=== PATIENT | female | born 1985 | race African-American/Black ===

== ENCOUNTER 2017-12-15 11:54 | Inpatient (IN) | payer SELFPAY ==
[~2017-12-15] VITALS: Ht 160 cm; Wt 90.3 kg
[~2017-12-15 11:54] MED LIST: PREN1CAP PO; PREN1TAB49 PO
[2017-12-15] MEDS ORDERED: SODIUM CHLORIDE 0.9% 1,000 ML IV ONE (12:29)
[2017-12-15] MEDS ORDERED: ONDANSETRON HCL 4MG/2ML INJ IV ONE (12:30)
[2017-12-15] MEDS: ACETAMINOPHEN 325MG TABLET PO PRN ×2 (12:57→22:06)
[2017-12-15 13:05] LABS: HEMATOCRIT. 35.7 % (36.0-48.0); HEMOGLOBIN. 11.6 g/dL (12.0-16.0); MEAN CORPUSCULAR HEMOGLOBIN 27.9 pg (28.0-32.0); PLATELET 304 x1000/uL (130-400); RED BLOOD CELL COUNT 4.15 mill/uL (4.2-5.4); RED CELL DISTRIBUTION WIDTH 13.7 % (11.6-14.6)
[2017-12-15 14:24] LABS: PLATELET ESTIMATE NORMAL
[2017-12-15 15:17] LABS: CLARITY URINE CLOUDY (CLEAR); COLOR URINE YELLOW (YELLOW); KETONES URINE 1+ (NEGATIVE); LEUKOCYTE ESTERASE URINE 2+ (NEGATIVE); NITRITE URINE POSITIVE (NEGATIVE); OCCULT BLOOD URINE 1+ (NEGATIVE); PROTEIN URINE 1+ (NEGATIVE); SPECIFIC GRAVITY URINE 1.016 (1.005-1.030)
[2017-12-15] MEDS ORDERED: CEFTRIAXONE 1 G PREMIX 50 ML IV ONE (15:45)
[2017-12-15 16:28] LABS: CHLORIDE 102 mEq/L (98-107)
[2017-12-15] MEDS ORDERED: ONDANSETRON HCL 4MG/2ML INJ IV STA (16:38)
[2017-12-15] MEDS ORDERED: MORPHINE SULFATE 4 MG/ML CPJ (NOT FOR IM USE) IV STA (16:38)
[2017-12-15 16:49] LABS: B-HCG QUANTITATIVE 12850 mIU/mL (<3)
[2017-12-15] MEDS ORDERED: AZITHROMYCIN 500 MG in DEXT 5% WATER 250 ML IV STA (17:35)
[2017-12-15] MEDS ORDERED: SODIUM CHLORIDE 0.9% 1000ML BAG (SEPSIS BOLUS) IV ONE (18:15)
[2017-12-15] MEDS ORDERED: CLONIDINE 0.1MG TABLET PO PRN (19:00)
[2017-12-15] MEDS ORDERED: DOCUSATE SODIUM 100MG CAPSULE PO PRN (19:00)
[2017-12-15] MEDS ORDERED: IPRATROPIUM/ALBUTEROL 0.5-3(2.5)MG/3ML NEB INH PRN (19:00)
[2017-12-15] MEDS ORDERED: GUAIFENESIN 200MG/10ML SUGAR FREE UDC PO PRN (19:00)
[2017-12-15] MEDS ORDERED: MAGNESIUM/ALUMINUM HYDROXIDE/SIMETHICONE 30ML UDC PO PRN (19:00)
[2017-12-15] MEDS ORDERED: DIPHENHYDRAMINE 50MG/ML VIAL IV PRN (19:00)
[2017-12-15] MEDS ORDERED: ACETAMINOPHEN 325MG TABLET PO PRN (19:00)
[2017-12-15] MEDS ORDERED: ONDANSETRON HCL 4MG/2ML INJ IV PRN (19:00)
[2017-12-15] MEDS: MORPHINE SULFATE 4 MG/ML CPJ (NOT FOR IM USE) IV PRN (20:37)
[2017-12-15] MEDS: SODIUM CHLORIDE 0.9% 1,000 ML IV SCH (21:22)
[2017-12-15] MEDS: ENOXAPARIN 30MG/0.3ML SYR SUBCUT SCH (21:29)
[2017-12-15 22:00] VITALS: BP 103/61
[2017-12-15 23:55] LABS: CREATINE KINASE 32 IU/L (26-192); CREATINE KINASE MB FRACTION < 1.0 ng/mL (0.5-3.6)
[2017-12-16] VITALS: BP 96/58
[2017-12-16] MEDS: MORPHINE SULFATE 4 MG/ML CPJ (NOT FOR IM USE) IV PRN ×4 (02:09→20:56)
[2017-12-16 04:00] VITALS: BP 101/57
[2017-12-16 07:00] LABS: HEMATOCRIT. 28.5 % (36.0-48.0); HEMOGLOBIN. 9.5 g/dL (12.0-16.0); MEAN CORPUSCULAR HEMOGLOBIN 28.7 pg (28.0-32.0); MEAN PLATELET VOLUME 9.6 fl (7.4-10.4); PLATELET 258 x1000/uL (130-400); RED BLOOD CELL COUNT 3.32 mill/uL (4.2-5.4); RED CELL DISTRIBUTION WIDTH 13.4 % (11.6-14.6)
[2017-12-16 07:17] LABS: CHLORIDE 104 mEq/L (98-107)
[2017-12-16 07:34] LABS: CREATINE KINASE 32 IU/L (26-192); CREATINE KINASE MB FRACTION < 1.0 ng/mL (0.5-3.6); T4 FREE 1.06 ng/dL (0.76-1.46)
[2017-12-16] MEDS: ENOXAPARIN 30MG/0.3ML SYR SUBCUT SCH ×2 (09:28→20:57)
[2017-12-16] MEDS: SODIUM CHLORIDE 0.9% 1,000 ML IV SCH ×2 (09:39→16:38)
[2017-12-16 09:43] VITALS: BP 97/59
[2017-12-16 09:44] LABS: PLATELET ESTIMATE NORMAL
[2017-12-16] MEDS ORDERED: POTASSIUM CHLORIDE 20MEQ TABLET SR PO SCH (12:00)
[2017-12-16 12:32] VITALS: BP 95/58
[2017-12-16 16:35] VITALS: BP 92/50
[2017-12-16] MEDS: CEFTRIAXONE 1 G PREMIX 50 ML IV SCH (16:37)
[2017-12-16 20:00] VITALS: BP 97/56
[2017-12-17] VITALS: BP 99/56
[2017-12-17 04:00] VITALS: BP 98/55
[2017-12-17] MEDS: MORPHINE SULFATE 4 MG/ML CPJ (NOT FOR IM USE) IV PRN ×3 (07:52→22:26)
[2017-12-17 08:00] VITALS: BP 98/58
[2017-12-17 08:09] LABS: HEMATOCRIT 27.7 % (36.0-48.0); HEMOGLOBIN 9.2 g/dL (12.0-16.0); MEAN CORPUSCULAR HEMOGLOBIN 28.4 pg (28.0-32.0); MEAN CORPUSCULAR VOLUME 85.4 fL (81.0-99.0); PLATELET 247 x1000/uL (130-400); RED BLOOD CELL COUNT 3.25 mill/uL (4.2-5.4); RED CELL DISTRIBUTION WIDTH 13.4 % (11.6-14.6)
[2017-12-17] MEDS: ENOXAPARIN 30MG/0.3ML SYR SUBCUT SCH ×2 (08:28→22:07)
[2017-12-17 09:21] LABS: CHLORIDE 104 mEq/L (98-107)
[2017-12-17 12:00] VITALS: BP 101/59
[2017-12-17 16:00] VITALS: BP 99/54
[2017-12-17] MEDS: CEFTRIAXONE 1 G PREMIX 50 ML IV SCH (16:32)
[2017-12-17 20:00] VITALS: BP 89/49
[2017-12-18] VITALS: BP 94/59
[2017-12-18 04:11] VITALS: BP 99/66
[2017-12-18 07:37] VITALS: BP 98/54
[2017-12-18 07:57] LABS: BASOPHILS % 0.9 % (0.0-2.0); EOSINOPHILS % 2.7 % (0.0-5.0); HEMATOCRIT. 26.5 % (36.0-48.0); LYMPHOCYTES % 16.2 % (20.0-50.0); MEAN CORPUSCULAR VOLUME 84.9 fL (81.0-99.0); MEAN PLATELET VOLUME 9.4 fl (7.4-10.4); MONOCYTES % 10.6 % (2.0-8.0); NEUTROPHILS % 69.6 % (40.0-76.0); PLATELET 262 x1000/uL (130-400); RED BLOOD CELL COUNT 3.12 mill/uL (4.2-5.4); RED CELL DISTRIBUTION WIDTH 13.4 % (11.6-14.6)
[2017-12-18 08:34] VITALS: BP 96/62
[2017-12-18 08:49] LABS: CHLORIDE 104 mEq/L (98-107)
[2017-12-18] MEDS: ENOXAPARIN 30MG/0.3ML SYR SUBCUT SCH (09:08)
== END 2017-12-18 11:25 | disposition home or self-care (01) | DRG 566 ==
LOC: ER 12:06 → 6WST 18:17 → ENRESERV 19:47
PROVIDERS: ADMIT Internal Medicine; ATTEND Internal Medicine
DX: O23.02 Infections of kidney in pregnancy, second trimester (principal); E87.6 Hypokalemia; O99.282 Endocrine, nutritional and metabolic diseases complicating pregnancy, second trimester; Z3A.16 16 weeks gestation of pregnancy
CPT/HCPCS: 36415; 71045; 74181; 76700; 76805; 76815; 76857; 80048; 82550; 82553; 83605; 84439; 84443; 84484; 84702; 85027; 96365; 96375; 99285; J0456; J0696; J1650; J2270; J2405; J7030; J7060